=== PATIENT | female | born 1980 | race American Indian/Alaskan Native ===

== ENCOUNTER 2018-05-13 09:44 | Emergency (ER) | payer MEDICAID, OTHER ==
[2018-05-13 09:45] VITALS: BMI 19.2
[2018-05-13] MEDS ORDERED: Sodium Chloride 0.9% 1,000 ML ONE (10:38)
[2018-05-13] MEDS: Sodium Chloride 0.9% 1,000 ML IV ONE (10:45)
--- NOTE | 2018-05-13 10:45 | C.PDOC ---
History Of Present Illness 37 y/o female with no PMHx comes in for evaluation of chills, malaise, bodyaches for the past 6 days associated with nausea, non-bilious vomiting, and watery diarrhea. Patient reports yesterday she had 3 episodes of vomiting and 4-5 episodes of diarrhea. Pt reports, " unable to keep anything at home, including liquids". Patient admits, was seen by [facility] days ago and given Rx: Zithromax, which she completed without improvement in symptoms. Otherwise patient denies high fever, dizziness, drooling, sore throat, chest pain, SOB, dyspnea, palpitation, wheezing, hematemesis, melena, UTI symptoms, or other complaints. LNMP- now. Ambulatory, appears depressed, crying. HPI: Influenza Time Seen by Provider: 05/13/18 09:47 Chief Complaint: Flu-like Symptoms Chief Complaint (Provider): Flu-like Symptoms History Per: Patient Exam Limitations: no limitations Onset/Duration Of Symptoms: Days (x 6) Symptoms include: bodyaches, cough, vomiting, diarrhea Past Medical History Reviewed: Historical Data, Nursing Documentation, Vital Signs Vital Signs: Last Vital Signs Temp 98.3 F 05/13/18 09:46 Pulse 75 05/13/18 09:46 Resp 18 05/13/18 09:46 BP 105/69 05/13/18 09:46 Pulse Ox 96 05/13/18 09:46 - Medical History PMH: No Chronic Diseases Denies: Depression Surgical History: - [facility] Procedures TETANUS TOXOID ADMINIST (11/11/12) Family History: States: Unknown Family Hx - Social History Hx Tobacco Use: Yes Hx Alcohol Use: No Hx Substance Use: No - Immunization History Hx Tetanus Toxoid Vaccination: No Hx Influenza Vaccination: No Hx Pneumococcal Vaccination: No Review Of Systems Constitutional: Positive for: Malaise, Other (Bodyaches). Negative for: Fever, Sweats Eyes: Negative for: Vision Change Cardiovascular: Negative for: Chest Pain, Palpitations Respiratory: Positive for: Cough. Negative for: Shortness of Breath, Hemoptysis, Sputum Gastrointestinal: Positive for: Nausea, Vomiting, Diarrhea. Negative for: Hematochezia, Hematemesis Genitourinary: Negative for: Dysuria, Frequency, Hematuria Musculoskeletal: Negative for: Back Pain Skin: Negative for: Rash Neurological: Negative for: Weakness, Numbness, Dizziness Physical Exam - Physical Exam Appears: Non-toxic Skin: Normal Color, Warm, No Rash, No Ecchymosis Head: Normacephalic Eye(s): bilateral: PERRL Oral Mucosa: Moist Throat: No Erythema, No Exudate, No Drooling Neck: Trachea Midline, No Midline Cervical Tenderness, No Paracervical Tenderness, Supple Cardiovascular: Rhythm Regular, No Murmur, No JVD Respiratory: No Decreased Breath Sounds, No Rales, No Rhonchi, No Stridor, No Wheezing Gastrointestinal/Abdominal: Soft, Tenderness (diffuse lower abdominal tenderness), No Distention, No Guarding, No Rebound Back: No CVA Tenderness Extremity: Normal ROM, No Tenderness, No Swelling Neurological/Psych: Oriented x3, Normal Speech, Normal Cognition Gait: Steady - Laboratory Results Result Diagrams: 05/13/18 10:50 05/13/18 10:50 Urine POC: Negative - ECG O2 Sat by Pulse Oximetry: 96 (RA) Pulse Ox Interpretation: Normal - Progress ED Course And Treament: Initial Plan: Labs ordered and reviewed. Administered IV fluids, 4 mg IV Zofran, 40 mg IV Protonix, and 20 mg IV Pepcid. On re-eval, pt is afebrile, hemodynamicaly stable. Pt reports, ' feel much better", asking for food. Pt was able tolerate Po well in ED. Non-toxic. Neck: Supple, (-) meningeal sign. Lungs: CTA B/L, BS equal B/L. CVS: (+)S1S2, reg. Abd: benign, (-) guarding, (-) rebound, (-) localized tenderness. back: (-) CVA tenderness. Blood work review and appears normal, no acute leukocytosis, no evidence of dehydration. UA (+) RBC, WBC, pt is on menrtual now. Pt has clinical findings c/w N/V/D r/o viral illness, r/o UTI. Pt advised. ref. to F/u with PMD in 2-3 days for re-eval. Return to ED if any worsening or new changes Condition: Improved Disposition Counseled Patient/Family Regarding: Studies Performed, Diagnosis, Need For Followup, Rx Given - Disposition Referrals: [facility] [Outside] Disposition: HOME/ ROUTINE Disposition Time: 11:49 Condition: STABLE Additional Instructions: Encourage fluids BRAT diet- banana, rice, apple sauce, toast Advance as tolerated Follow up with PMD in 2-3 days for re-evaluation. return to ED if any worsening or new changes Prescriptions: Famotidine [Pepcid] 20 mg PO DAILY #14 tab Ondansetron HCl [Zofran] 4 mg PO BID #6 tablet Pantoprazole Sodium [Protonix] 40 mg PO DAILY #14 ect Instructions: Urinary Tract Infections in Adults, Nausea and Vomiting, Adult (DC), Viral Gastroenteritis, Adult (DC) Forms: [employer] ([place]), Work Excuse - Clinical Impression Clinical Impression: Vomiting, Diarrhea, UTI (urinary tract infection) - PA / [employer]ANT / Resident Statement MD/DO has reviewed & agrees with the documentation as recorded. - Scribe Statement The provider has reviewed the documentation as recorded by the Scribishmael Stevenson All medical record entries made by the Scribishmael were at my direction and personally dictated by me. I have reviewed the chart and agree that the record accurately reflects my personal performance of the history, physical exam, medical decision making, and the department course for this patient. I have also personally directed, reviewed, and agree with the discharge instructions and disposition.
[2018-05-13 10:56] LABS: BASO # 0.1 K/uL (0.0-0.2); BASO % 0.8 % (0.0-2.0); EOS % 0.2 % (0.0-4.0); HEMOGLOBIN 15.1 g/dL (11.0-16.0); LYMPH # 1.5 K/uL (1.0-4.3); LYMPH % 18.3 % (20.0-40.0); MEAN CELL VOLUME 91.7 fL (81.0-99.0); MEAN CORPUSCULAR HEMOGLOBIN 31.8 pg (27.0-31.0); MEAN CORPUSCULAR HGB CONC 34.7 g/dL (33.0-37.0); MEAN PLATELET VOLUME 8.6 fL (7.2-11.7); MONO % 12.5 % (0.0-10.0); NEUT # 5.6 K/uL (1.8-7.0); NEUT % 68.2 % (50.0-75.0); RBC 4.74 Mil/uL (3.80-5.20); RED CELL DISTRIBUTION WIDTH 12.9 % (11.5-14.5); WHITE BLOOD COUNT 8.2 K/uL (4.8-10.8)
[2018-05-13 11:13] LABS: ALB/GLOB RATIO 1.5 (1.0-2.1); ALBUMIN 4.6 g/dL (3.5-5.0); ALT/SGPT 26 U/L (9-52); AST/SGOT 52 U/L (14-36); BLOOD UREA NITROGEN 11 mg/dL (7-17); GFR NON-AFRICAN AMERICAN > 60; LIPASE 45 U/L (23-300)
[2018-05-13 12:10] LABS: SQUAMOUS EPITHIAL 5 /hpf (0-5); URINE AMORPHOUS SEDIMENT RARE /ul (<OCC); URINE BACTERIA OCC (<OCC); URINE BILIRUBIN 1+ (NEGATIVE); URINE BLOOD 3+ (NEGATIVE); URINE CLARITY Hazy (Clear); URINE COLOR Amber (YELLOW); URINE GLUCOSE (UA) NORMAL (Normal); URINE LEUKOCYTE ESTERASE 2+ Leu/uL (Negative); URINE PROTEIN 3+ mg/dL (NEGATIVE); URINE UROBILINOGEN NORMAL mg/dL (0.2-1.0)
[2018-05-13 12:12] LABS: HCG,QUALITATIVE URINE NEGATIVE (NEGATIVE)
[2018-05-13 13:27] VITALS: BP 116/79; PULSE 68; RESP 20; TEMP 98.3
[2018-05-13 15:29] VITALS: O2SAT 96
== END 2018-05-13 13:27 | disposition home or self-care (01) ==
LOC: C.ER 09:44
DX: N39.0 Urinary tract infection, site not specified (principal); R19.7 Diarrhea, unspecified; R11.2 Nausea with vomiting, unspecified
CPT/HCPCS: 80053; 81001; 83690; 84703; 85025; 87804; 96361; 96365; 96375; 99285; C9113; J0696; J2405; J7030